=== PATIENT | female | born 1975 | race Caucasian/White ===

== ENCOUNTER 2020-01-26 12:53 | Outpatient (REF) | payer OTHER, SELFPAY ==
--- NOTE | 2020-01-26 13:01 | XR_ITS ---
EXAMINATION: XR HIP, LEFT CLINICAL INFORMATION: Left hip pain. COMPARISON: None. TECHNIQUE: 2 views of the left hip. FINDINGS: Left hip joint space is maintained. No acute fracture or dislocation is seen. Visualized left hemipelvis is intact. No abnormal soft tissue calcification. IMPRESSION: No evidence of acute osseous abnormality.
== END 2020-01-26 12:54 | disposition home or self-care (01) ==
LOC: HO.XRAY 12:53
PROVIDERS: PCP Internal Medicine; Visit Provider Internal Medicine
DX: M25.552 Pain in left hip (principal)
CPT/HCPCS: 73502

== ENCOUNTER 2020-02-02 14:36 | Outpatient (REF) | payer OTHER, SELFPAY ==
--- NOTE | 2020-02-02 14:43 | MM_ITS ---
EXAMINATION: MM SCREENING DIGITAL BREAST TOMOSYNTHESIS, BILATERAL CLINICAL INFORMATION: Screening. Asymptomatic. The lifetime risk of breast cancer based on the Tyrer-Cuzick Model is 9%. COMPARISON: Mammography: 01/28/2019, 12/18/2017, 09/10/2016, 08/12/2015 TECHNIQUE: Digital breast tomosynthesis is performed in both the craniocaudal and mediolateral oblique views along with computer-aided detection (CAD). Synthesized 2D images are generated from the tomosynthesis. Additional exaggerated right CC view is provided. FINDINGS: There are scattered areas of fibroglandular density (ACR BI-RADS breast composition Category b). There are no significant masses, abnormal calcifications, or other abnormalities. There is stable oval nodule mid 8:00 right breast and stable lobulated nodule posterior central 3:00 left breast similar to prior exams. IMPRESSION: No significant changes from prior studies. ASSESSMENT: BI-RADS 2: Benign RECOMMENDATION: Routine annual mammography screening. This patient's information was entered into a reminder system with a target due date for their next mammogram.
== END 2020-02-02 14:37 | disposition home or self-care (01) ==
LOC: HO.MAMMO 14:36
PROVIDERS: PCP Internal Medicine; Visit Provider Internal Medicine
DX: Z12.31 Encounter for screening mammogram for malignant neoplasm of breast (principal)
CPT/HCPCS: 77063; 77067

== ENCOUNTER 2020-02-11 09:37 | Outpatient (REF) | payer OTHER, SELFPAY ==
[2020-02-11 11:26] LABS: Basophils Absolute Auto 0.1 X10*3/uL (0.0-0.2); Basophils Percent Auto 0.5 % (0-2); Eosinophils Absolute Auto 0.4 X10*3/uL (0.0-0.4); Eosinophils Percent Auto 3.1 % (0-4); Hematocrit 42.3 % (37-47); Imm Gran Abs Auto 0.04 X10*3/uL (0.00-0.03); Imm Gran Pct Auto 0.3 % (0.0-0.4); Lymphocytes Absolute Auto 5.5 X10*3/uL (1.2-4.9); Lymphocytes Percent Auto 43.1 % (20-40); MANUAL DIFF FLAG SCAN; Mean Corpuscular HGB Conc 33.1 g/dl (31.0-35.0); Mean Corpuscular Hemoglobin 30.6 pg (27.0-33.0); Mean Corpuscular Volume 92.6 fL (80-98); Mean Platelet Volume 11.2 fL (9.4-12.3); Monocytes Absolute Auto 0.7 X10*3/uL (0.1-1.2); Monocytes Percent Auto 5.2 % (2-11); Neutrophils Absolute Auto 6.1 X10*3/uL (2.0-8.3); Neutrophils Percent Auto 47.8 % (45-73); Platelet Count 457 X10*3/uL (160-400); Red Blood Count 4.57 X10*6/uL (4.20-5.50); Red Cell Distribution Width 12.6 % (11.0-16.0); SCAN SMEAR FLAG 1; White Blood Count 12.7 X10*3/uL (4.8-10.8)
[2020-02-11 11:39] LABS: Alanine Aminotransferase 10 U/L (0-31); Albumin Level 4.5 g/dL (3.5-5.0); Alkaline Phosphatase 87 U/L (39-117); Anion Gap 14 (12-20); Aspartate Amino Transferase 14 U/L (5-31); Bilirubin Total 0.5 mg/dL (0.0-1.0); Blood Urea Nitrogen 8 mg/dL (9-16); C Reactive Protein 0.43 mg/dL (< or = 0.50); Calcium 9.6 mg/dL (8.4-10.2); Carbon Dioxide 27 mmol/L (22-29); Chloride 105 mmol/L (96-108); Cholesterol 275 mg/dL; Estimated Glomerular Filt Rate > 60; Glucose Fasting 92 mg/dL (60-99); HDL Cholesterol 51 mg/dL; LDL Cholesterol Calculated 198 mg/dl; Potassium 4.2 mmol/l (3.3-5.1); Sodium 142 mmol/L (135-145); Total Protein 6.9 g/dL (6.5-8.0); Triglycerides 130 mg/dL
[2020-02-11 12:14] LABS: SLIDE REVIEW VERIFIED
[2020-02-11 12:21] LABS: Glucose Urine UA NEG (NEG); Leukocyte Esterase Urine NEG (NEG); Nitrite Urine NEG (NEG); Specific Gravity - Urine 1.015 (1.005-1.025); Urine Blood TRACE (NEG); Urine Ketones NEG (NEG); Urine Protein TRACE MG/DL (NEG-TRACE)
[2020-02-11 12:38] LABS: Appearance Urine HAZY; Color Urine YELLOW
[2020-02-11 13:35] LABS: RBC Urine 0-2 /HPF (0); Squamous Epithelial Cell Urine TRACE /LPF; WBC Urine 0 /HPF (0-4)
[2020-02-11 13:36] LABS: Amorphous Sediment Urine 2+ /LPF
== END 2020-02-11 09:38 | disposition home or self-care (01) ==
LOC: HO.HMGCLDS 09:37
PROVIDERS: PCP Internal Medicine; Visit Provider Internal Medicine
DX: R10.11 Right upper quadrant pain (principal); Z00.00 Encounter for general adult medical examination without abnormal findings; M79.642 Pain in left hand; M79.641 Pain in right hand
CPT/HCPCS: 36415; 80053; 80061; 81001; 81003; 82306; 85025; 86140; 87086

== ENCOUNTER 2020-04-20 09:24 | Outpatient (REF) | payer OTHER, SELFPAY ==
[2020-04-20 11:13] LABS: Basophils Percent Auto 0.2 % (0-2); Eosinophils Absolute Auto 0.3 X10*3/uL (0.0-0.4); Eosinophils Percent Auto 2.4 % (0-4); Hematocrit 40.2 % (37-47); Hemoglobin 13.2 g/dl (12.0-16.0); Imm Gran Abs Auto 0.04 X10*3/uL (0.00-0.03); Imm Gran Pct Auto 0.3 % (0.0-0.4); Lymphocytes Percent Auto 48.7 % (20-40); MANUAL DIFF FLAG SCAN; Mean Corpuscular HGB Conc 32.8 g/dl (31.0-35.0); Mean Corpuscular Hemoglobin 30.3 pg (27.0-33.0); Mean Corpuscular Volume 92.4 fL (80-98); Mean Platelet Volume 10.8 fL (9.4-12.3); Monocytes Absolute Auto 0.6 X10*3/uL (0.1-1.2); Monocytes Percent Auto 4.8 % (2-11); Neutrophils Absolute Auto 5.4 X10*3/uL (2.0-8.3); Neutrophils Percent Auto 43.6 % (45-73); Platelet Count 431 X10*3/uL (160-400); Red Blood Count 4.35 X10*6/uL (4.20-5.50); Red Cell Distribution Width 12.5 % (11.0-16.0); SCAN SMEAR FLAG 1; White Blood Count 12.4 X10*3/uL (4.8-10.8)
[2020-04-20 11:39] LABS: SLIDE REVIEW VERIFIED
[2020-04-20 11:40] LABS: Amylase 73 U/L (28-100); C Reactive Protein 0.18 mg/dL (< or = 0.50); Cholesterol 234 mg/dL; HDL Cholesterol 43 mg/dL; LDL Cholesterol Calculated 142 mg/dl; Triglycerides 246 mg/dL
== END 2020-04-20 09:25 | disposition home or self-care (01) ==
LOC: HO.HMGCLDS 09:24
PROVIDERS: PCP Internal Medicine; Visit Provider Internal Medicine
DX: R68.84 Jaw pain (principal); J34.89 Other specified disorders of nose and nasal sinuses; E78.00 Pure hypercholesterolemia, unspecified
CPT/HCPCS: 36415; 80061; 82150; 85025; 85060; 86140

== ENCOUNTER 2020-11-03 09:07 | Outpatient (REF) | payer OTHER, SELFPAY ==
[2020-11-03 11:29] LABS: Basophils Absolute Auto 0.1 X10*3/uL (0.0-0.2); Basophils Percent Auto 0.4 % (0-2); Eosinophils Absolute Auto 0.3 X10*3/uL (0.0-0.4); Eosinophils Percent Auto 2.3 % (0-4); Hematocrit 41.1 % (37-47); Hemoglobin 13.5 g/dl (12.0-16.0); Imm Gran Abs Auto 0.05 X10*3/uL (0.00-0.03); Imm Gran Pct Auto 0.4 % (0.0-0.4); Lymphocytes Absolute Auto 5.6 X10*3/uL (1.2-4.9); Lymphocytes Percent Auto 41.3 % (20-40); MANUAL DIFF FLAG SCAN; Mean Corpuscular HGB Conc 32.8 g/dl (31.0-35.0); Mean Corpuscular Hemoglobin 29.9 pg (27.0-33.0); Mean Corpuscular Volume 90.9 fL (80-98); Mean Platelet Volume 11.1 fL (9.4-12.3); Monocytes Absolute Auto 0.8 X10*3/uL (0.1-1.2); Monocytes Percent Auto 5.8 % (2-11); Neutrophils Absolute Auto 6.7 X10*3/uL (2.0-8.3); Neutrophils Percent Auto 49.8 % (45-73); Platelet Count 466 X10*3/uL (160-400); Red Blood Count 4.52 X10*6/uL (4.20-5.50); Red Cell Distribution Width 12.8 % (11.0-16.0); SCAN SMEAR FLAG 1; White Blood Count 13.5 X10*3/uL (4.8-10.8)
[2020-11-03 12:03] LABS: Alanine Aminotransferase 11 U/L (0-31); Albumin Level 4.4 g/dL (3.5-5.0); Alkaline Phosphatase 85 U/L (39-117); Anion Gap 15 (12-20); Aspartate Amino Transferase 14 U/L (5-31); Bilirubin Total 0.6 mg/dL (0.0-1.0); Blood Urea Nitrogen 7 mg/dL (9-16); Calcium 9.4 mg/dL (8.4-10.2); Carbon Dioxide 22 mmol/L (22-29); Chloride 109 mmol/L (96-108); Cholesterol 243 mg/dL; Estimated Glomerular Filt Rate > 60; Glucose Fasting 99 mg/dL (60-99); HDL Cholesterol 44 mg/dL; LDL Cholesterol Calculated 175 mg/dl; Potassium 4.1 mmol/L (3.3-5.1); Sodium 142 mmol/L (135-145); Total Protein 6.7 g/dL (6.5-8.0); Triglycerides 120 mg/dL
[2020-11-03 12:25] LABS: Vitamin D 25-OH Total 25.7 ng/mL (>30)
[2020-11-03 13:17] LABS: SLIDE REVIEW VERIFIED
== END 2020-11-03 09:08 | disposition home or self-care (01) ==
LOC: HO.HMGCLDS 09:07
PROVIDERS: PCP Internal Medicine Medical Oncology; Visit Provider Internal Medicine Medical Oncology
DX: E66.3 Overweight (principal)
CPT/HCPCS: 36415; 80053; 80061; 82306; 85025

== ENCOUNTER → 2020-12-14 13:05 | Outpatient (BNVA) | payer OTHER, SELFPAY | PROVIDERS: PCP Internal Medicine Medical Oncology; Visit Provider Advanced Practice Midwife ==

== ENCOUNTER → 2021-03-28 08:45 | Outpatient (BNVA) | payer OTHER, SELFPAY | PROVIDERS: PCP Internal Medicine Medical Oncology; Visit Provider Advanced Practice Midwife ==

== ENCOUNTER → 2021-04-19 08:54 | Outpatient (BNVA) | payer OTHER, SELFPAY | PROVIDERS: PCP Internal Medicine Medical Oncology; Visit Provider Obstetrics & Gynecology | DX: Z30.46 Encounter for surveillance of implantable subdermal contraceptive (principal) | CPT/HCPCS: 11982 ==

== ENCOUNTER 2021-04-24 12:13 | Outpatient (REF) | payer OTHER, SELFPAY ==
[2021-04-24 13:33] LABS: COVID-19 Test Positive (Negative)
== END 2021-04-24 12:14 | disposition home or self-care (01) ==
LOC: HO.LAB 12:13
PROVIDERS: Visit Provider Internal Medicine
DX: Z20.822 Contact with and (suspected) exposure to COVID-19 (principal)
CPT/HCPCS: 36415; 87635; C9803

== ENCOUNTER 2021-05-01 12:53 | Outpatient (REF) | payer OTHER, SELFPAY ==
[2021-05-01 15:17] LABS: Binax Internal Control QC Valid; Binax Now Covid-19 Ag Negative (Negative)
== END 2021-05-01 12:54 | disposition home or self-care (01) ==
LOC: HO.LAB 12:53
PROVIDERS: Visit Provider Internal Medicine
DX: Z20.822 Contact with and (suspected) exposure to COVID-19 (principal)
CPT/HCPCS: 36415; C9803

== ENCOUNTER 2021-05-05 07:32 | Outpatient (REF) | payer OTHER, SELFPAY | END 2021-05-05 07:33 | disposition home or self-care (01) | LOC: HO.HOSX 07:32 | PROVIDERS: Visit Provider Physician Assistant | DX: Z13.89 Encounter for screening for other disorder (principal) ==

== ENCOUNTER 2021-05-31 09:00 | Outpatient (REF) | payer OTHER, SELFPAY ==
--- NOTE | ~2021-05-31 | MM_ITS ---
EXAMINATION: MM SCREENING DIGITAL BREAST TOMOSYNTHESIS, BILATERAL CLINICAL INFORMATION: Screening. Asymptomatic. The lifetime risk of breast cancer based on the Tyrer-Cuzick Model is 5%. COMPARISON: Mammography: 02/02/2020, 01/28/2019, 12/18/2017, 09/10/2016 TECHNIQUE: Digital breast tomosynthesis is performed in both the craniocaudal and mediolateral oblique views along with computer-aided detection (CAD). Synthesized 2D images are generated from the tomosynthesis. FINDINGS: There are scattered areas of fibroglandular density (ACR BI-RADS breast composition Category b). There are no significant masses, abnormal calcifications, or other abnormalities. Parenchymal pattern is similar to prior studies. There is no developing density or architectural abnormality. There is stable nodule again noted mid 8:00 right breast and stable minor parenchymal asymmetry central 3:00 left breast. No significant changes. The axilla and skin contours are unremarkable. MM/MM tomosynthesis screening BI IMPRESSION: No mammographic evidence of malignancy. ASSESSMENT: BI-RADS 2: Benign RECOMMENDATION: Routine annual mammography screening. This patient's information was entered into a reminder system with a target due date for their next mammogram.
== END 2021-05-31 09:01 | disposition home or self-care (01) ==
LOC: HO.MAMMO 09:00
PROVIDERS: PCP Internal Medicine Medical Oncology; Visit Provider Internal Medicine Medical Oncology
DX: Z12.31 Encounter for screening mammogram for malignant neoplasm of breast (principal)
CPT/HCPCS: 77063; 77067

== ENCOUNTER 2021-10-26 09:32 | Outpatient (REF) | payer OTHER, SELFPAY ==
[2021-10-26 10:17] LABS: COVID-19 Test Negative (Negative); IDNOW Serial# 9DB6401D
== END 2021-10-26 09:33 | disposition home or self-care (01) ==
LOC: HO.LAB 09:32
PROVIDERS: Visit Provider Internal Medicine
DX: Z20.822 Contact with and (suspected) exposure to COVID-19 (principal)
CPT/HCPCS: 87635; C9803

== ENCOUNTER 2022-06-07 10:38 | Outpatient (REF) | payer OTHER, SELFPAY ==
[2022-06-07 11:55] LABS: Basophils Absolute Auto 0.1 X10*3/uL (0.0-0.2); Basophils Percent Auto 0.6 % (0-2); Eosinophils Absolute Auto 0.4 X10*3/uL (0.0-0.4); Eosinophils Percent Auto 2.5 % (0-4); Hematocrit 40.1 % (37.0-47.0); Hemoglobin 13.2 g/dl (12.0-16.0); Imm Gran Abs Auto 0.06 X10*3/uL (0.00-0.03); Imm Gran Pct Auto 0.4 % (0.0-0.4); Lymphocytes Percent Auto 43.8 % (20-40); MANUAL DIFF FLAG SCAN; Mean Corpuscular HGB Conc 32.9 g/dl (31.0-35.0); Mean Corpuscular Hemoglobin 30.3 pg (27.0-33.0); Mean Platelet Volume 11.1 fL (9.4-12.3); Monocytes Absolute Auto 0.8 X10*3/uL (0.1-1.2); Monocytes Percent Auto 5.9 % (2-11); Neutrophils Absolute Auto 6.5 x10*3/uL (2.0-8.3); Neutrophils Percent Auto 46.8 % (45-73); Platelet Count 455 X10*3/uL (160-400); Red Blood Count 4.36 X10*6/uL (4.20-5.50); Red Cell Distribution Width 12.7 % (11.0-16.0); SCAN SMEAR FLAG 1
[2022-06-07 12:04] LABS: Lymphocytes Absolute Auto 6.1 X10*3/uL (1.2-4.9)
[2022-06-07 12:14] LABS: SLIDE REVIEW VERIFIED
[2022-06-07 12:34] LABS: Alanine Aminotransferase 11 U/L (0-31); Albumin Level 4.2 g/dL (3.5-5.0); Alkaline Phosphatase 75 U/L (39-117); Anion Gap 15 (12-20); Aspartate Amino Transferase 13 U/L (5-31); Bilirubin Total 0.4 mg/dL (0.0-1.0); Blood Urea Nitrogen 7 mg/dL (9-16); Calcium 9.6 mg/dL (8.4-10.2); Carbon Dioxide 25 mmol/L (22-29); Chloride 109 mmol/L (96-108); Cholesterol 233 mg/dL; Estimated Glomerular Filt Rate > 60; Glucose Fasting 90 mg/dL (60-99); HDL Cholesterol 47 mg/dL; LDL Cholesterol Calculated 169 mg/dl; Potassium 4.8 mmol/L (3.3-5.1); Sodium 144 mmol/L (135-145); Total Protein 6.3 g/dL (6.5-8.0); Triglycerides 86 mg/dL
[2022-06-07 12:52] LABS: Vitamin D 25-OH Total 25.7 ng/mL (>30)
== END 2022-06-07 10:39 | disposition home or self-care (01) ==
LOC: HO.LAB 10:38
PROVIDERS: PCP Internal Medicine Medical Oncology; Visit Provider Internal Medicine Medical Oncology
DX: Z00.00 Encounter for general adult medical examination without abnormal findings (principal); F17.200 Nicotine dependence, unspecified, uncomplicated; I83.93 Asymptomatic varicose veins of bilateral lower extremities; E66.3 Overweight; Z86.59 Personal history of other mental and behavioral disorders
CPT/HCPCS: 36415; 80053; 80061; 82306; 85025

== ENCOUNTER 2022-06-20 13:53 | Outpatient (REF) | payer OTHER, SELFPAY ==
--- NOTE | ~2022-06-20 | MM_ITS ---
EXAMINATION: MM SCREENING DIGITAL BREAST TOMOSYNTHESIS, BILATERAL CLINICAL INFORMATION: Screening. Asymptomatic. The lifetime risk of breast cancer based on the Tyrer-Cuzick Model is 7%. COMPARISON: Mammography: 05/31/2021, 02/02/2020, 04/30/2018 TECHNIQUE: Digital breast tomosynthesis is performed in both the craniocaudal and mediolateral oblique views along with computer-aided detection (CAD). Synthesized 2D images are generated from the tomosynthesis. FINDINGS: There are scattered areas of fibroglandular density (ACR BI-RADS breast composition Category b). No architectural abnormality or developing density or significant change from prior studies. There are no significant masses, abnormal calcifications, or other abnormalities. Again, there is a circumscribed oval nodule mid central 8:00 right breast and stable nodular asymmetry posterior central 3:00 left breast similar to prior exams. The axilla and skin contours are unremarkable. MM/MM tomosynthesis screening BI IMPRESSION: No mammographic evidence of malignancy. ASSESSMENT: BI-RADS 2: Benign RECOMMENDATION: Routine annual mammography screening. This patient's information was entered into a reminder system with a target due date for their next mammogram.
== END 2022-06-20 13:54 | disposition home or self-care (01) ==
LOC: HO.MAMMO 13:53
PROVIDERS: Visit Provider Internal Medicine Medical Oncology
DX: Z12.31 Encounter for screening mammogram for malignant neoplasm of breast (principal)
CPT/HCPCS: 77063; 77067

== ENCOUNTER 2022-06-27 14:16 | Outpatient (REF) | payer OTHER, SELFPAY ==
[2022-06-27 17:28] LABS: CT PCR NOT DETECTED (Not Detect.); NG PCR NOT DETECTED (Not Detect.)
[2022-06-30 02:59] LABS: HPV mRNA E6/E7 rflx Not Detected (Not Detected)
== END 2022-06-27 14:17 | disposition home or self-care (01) ==
LOC: HO.LNP 14:16
PROVIDERS: PCP Internal Medicine Medical Oncology; Visit Provider Advanced Practice Midwife
DX: Z01.419 Encounter for gynecological examination (general) (routine) without abnormal findings (principal); Z11.51 Encounter for screening for human papillomavirus (HPV); Z20.2 Contact with and (suspected) exposure to infections with a predominantly sexual mode of transmission
CPT/HCPCS: 0353U; 87624; 88142

== ENCOUNTER 2022-11-05 08:40 | Outpatient (REF) | payer OTHER, SELFPAY ==
[2022-11-05 12:06] LABS: Basophils Absolute Auto 0.1 X10*3/uL (0.0-0.2); Basophils Percent Auto 0.7 % (0-2); Eosinophils Absolute Auto 0.5 X10*3/uL (0.0-0.4); Hematocrit 42.5 % (37.0-47.0); Imm Gran Abs Auto 0.08 X10*3/uL (0.00-0.03); Imm Gran Pct Auto 0.5 % (0.0-0.4); Lymphocytes Absolute Auto 5.8 X10*3/uL (1.2-4.9); Lymphocytes Percent Auto 35.3 % (20-40); MANUAL DIFF FLAG SCAN; Mean Corpuscular HGB Conc 32.9 g/dl (31.0-35.0); Mean Corpuscular Hemoglobin 30.8 pg (27.0-33.0); Mean Corpuscular Volume 93.6 fL (80.0-98.0); Mean Platelet Volume 11.6 fL (9.4-12.3); Monocytes Absolute Auto 0.9 X10*3/uL (0.1-1.2); Monocytes Percent Auto 5.2 % (2-11); Neutrophils Absolute Auto 9.1 x10*3/uL (2.0-8.3); Neutrophils Percent Auto 55.3 % (45-73); Platelet Count 458 X10*3/uL (160-400); Red Blood Count 4.54 X10*6/uL (4.20-5.50); Red Cell Distribution Width 12.9 % (11.0-16.0); SCAN SMEAR FLAG 1; White Blood Count 16.5 X10*3/uL (4.8-10.8)
[2022-11-05 12:59] LABS: Alanine Aminotransferase 11 U/L (0-31); Albumin Level 4.5 g/dL (3.5-5.0); Alkaline Phosphatase 84 U/L (39-117); Anion Gap 14 (12-20); Aspartate Amino Transferase 15 U/L (5-31); Bilirubin Total 0.4 mg/dL (0.0-1.0); Blood Urea Nitrogen 9 mg/dL (9-16); Calcium 10.2 mg/dL (8.4-10.2); Carbon Dioxide 26 mmol/L (22-29); Chloride 109 mmol/L (96-108); Cholesterol 267 mg/dL; Estimated Glomerular Filt Rate > 60; Glucose Fasting 111 mg/dL (60-99); HDL Cholesterol 43 mg/dL; LDL Cholesterol Calculated 186 mg/dl; Sodium 145 mmol/L (135-145); Total Protein 7.1 g/dL (6.5-8.0); Triglycerides 192 mg/dL
[2022-11-05 13:01] LABS: Vitamin D 25-OH Total 63.3 ng/mL (>30)
[2022-11-05 13:19] LABS: SLIDE REVIEW VERIFIED
== END 2022-11-05 08:41 | disposition home or self-care (01) ==
LOC: HO.HMGCLDS 08:40
PROVIDERS: PCP Internal Medicine Medical Oncology; Visit Provider Internal Medicine Medical Oncology
DX: E66.3 Overweight (principal); G56.03 Carpal tunnel syndrome, bilateral upper limbs; M54.42 Lumbago with sciatica, left side; E55.9 Vitamin D deficiency, unspecified
CPT/HCPCS: 36415; 80053; 80061; 82306; 85025

== ENCOUNTER 2022-12-10 14:40 | Outpatient (REF) | payer OTHER, SELFPAY ==
--- NOTE | ~2022-12-10 | FL_ITS ---
EXAMINATION: FL MODIFIED BARIUM SWALLOW CLINICAL INFORMATION: Dysphagia. COMPARISON: None available. TECHNIQUE: Modified barium swallow was performed with various consistencies of liquid and solid food coated with barium in lateral fluoroscopy. FINDINGS: Following oral administration of thin, solid, semisolid and thick liquid food coated with barium there is normal propagation of bolus from the oral cavity through the pharynx into esophagus without any evidence of obstruction or narrowing. There is mild ventral spondylosis C3-C4 and C5-C6 disc levels. Video documentation was performed. FLUOROSCOPY TIME: 0.5 minutes DOSE AREA PRODUCT: 0.647 uGy-m2 (microgray-meter squared) FL/FL barium swallow modified IMPRESSION: Successful fluoroscopy-guided modified barium swallow was performed.
--- NOTE | 2022-12-11 14:09 | MHC.SL.IMP ---
Date of Plan of Treatment: 12/11/22 Onset of Symptoms/Illness: 11/15/22 Date Treatment Started: 12/11/22 Admitting Diagnosis: Anxiety Primary Speech & Language Diagnosis: R13.19 Other Dysphagia Reason for Today's Visit: 55521 Modified Barium Swallow Study Pre-evaluation Dietary Consistencies: Regular Pre-evaluation Liquid Consistency: Thin Pre-evaluation Medication Administration: Whole with Liquid Medical History: Asthma [facility] Fall Risk Assessment Score: Oral Motor Exam Unremarkable Oral Expression Ability: Intact Is patient able to manage secretions?: Yes Is patient able to produce volitional cough?: Yes Food and Liquid Trials: Oral Impairment: Lip Closure: 0=No labial escape Oral Impairment: Tongue Control During Bolus Hold: 0=Cohesive bolus between tongue to palatal seal Oral Impairment: Bolus Preparation/Mastication: 0=Timely and efficient chewing and mashing Oral Impairment: Bolus Transport/Lingual Motion: 0=Brisk tongue motion Oral Impairment: Oral Residue: 1=Trace residue lining oral structures Oral Impairment:Initiation of Pharyngeal Swallow: 1=Bolus head in valleculae Pharyngeal Impairment: Soft Palate Elevation: 0=No bolus between soft palate (SP)/pharyngeal wall (PW) Pharyngeal Impairment: Laryngeal Elevation: 0=Complete superior movement of thyroid cartilage (see description) Pharyngeal Impairment: Anterior Hyoid Excursion: 0=Complete anterior movement Pharyngeal Impairment: Epiglottic Movement: 0=Complete inversion Pharyngeal Impairment: Laryngeal Vestibular Closure:: 0=Complete: no air/contrast in laryngeal vestibule Pharyngeal Impairment: Pharyngeal Stripping Wave: 0=Present: complete Pharyngeal Impairment: Pharyngeal Contraction: 0=Complete Pharyngeal Impairment: Pharyngoesophageal Segment Openin=Partial distention/partial duration: partial obstruction of flow Pharyngeal Impairment: Tongue Base (TB) Retraction: 1=Trace column of contrast/air between TB and posterior PW Pharyngeal Impairment: Pharyngeal Residue: Pharyngeal Impairment: Esophageal Clearance Upright Position: Did not test Impressions and Recommendations Clinical Observations: MBSImP Results: Lip closure for intraoral bolus containment resulted in no labial escape. Tongue control during bolus hold maintained a cohesive bolus held between tongue to palate seal. Bolus preparation and mastication resulted in timely and efficient chewing and mashing. Bolus transport/lingual motion was with brisk tongue motion. Oral residue was a trace, lining oral structures. Initiation of the pharyngeal swallow occurred when the bolus head was in the valleculae. Soft palate elevation resulted in no bolus between the soft palate and the pharyngeal wall. Laryngeal elevation demonstrated complete superior movement of the thyroid cartilage with complete approximation of the arytenoids to the epiglottic petiole. Anterior hyoid excursion demonstrated complete anterior movement. Epiglottic movement resulted in complete inversion. Laryngeal vestibular closure was complete, as indicated by no air or contrast within the laryngeal vestibule at the height of the swallow. Pharyngeal stripping wave was present and complete. Pharyngeal contraction could not be determined due to logistical reasons not related to physiologic impairment. Pharyngoesophageal segment opening demonstrated partial distension/partial duration, with partial obstruction of bolus flow. Tongue base retraction allowed a trace column of contrast or air between the retracted tongue base and the posterior pharyngeal wall. Pharyngeal residue was not present. There was complete pharyngeal clearance. Esophageal clearance in the upright position was complete, with only a coating of contrast, if any. Summary: Pt deemed to be within functional limits based on the results of today's study. No contrast is present after the swallow. The bolus is observed transferring through the pharynx and into the esophagus with relative ease. The attending radiologist notes the presence of cervical spondylosis. The location of an osteophyte at the level of the upper esophageal sphincter may explain some of her reported symptoms. It is likely however that her anxiety disorder, in the setting of a recent choking episode, also contributes along with this physiological finding. Liquid Intake Recommendation: Thin Liquid Intake Strategies: Small Sips Dietary Recommendations: Regular Medication Administration: Whole with Liquid Please contact the pharmacy regarding appropriate crushable or liquid drug formulations that are available whenever modified delivery is recommended. Compensatory Strategies Recommended: Sitting Upright (90 deg) Small Bites and Sips Alternate Liquids/Solids Rate of Ingestion Change Supervision during eating and or drinking: None Needed Recommended Treatments: Compens. Strategy Educat. Recommendation for Speech Therapy: NA:Typical Evaluation Text Comment: Frequency/Duration: Date Range for Service Requested: Timeline to reassess: PRN Camp Boss Clinician/Clinical Fellow: No Supervisory Statement: N/A Speech Language Pathologist: Zay Blevins M.A., CCC-RAKING MACHINE OPERATOR
== END 2022-12-10 14:41 | disposition home or self-care (01) ==
LOC: HO.XRAY 14:40
PROVIDERS: PCP Internal Medicine Medical Oncology; Visit Provider Internal Medicine Medical Oncology
DX: R13.10 Dysphagia, unspecified (principal)
CPT/HCPCS: 74230; 92611

== ENCOUNTER → 2022-12-10 14:41 | Outpatient (BNV) | payer OTHER, SELFPAY | PROVIDERS: PCP Internal Medicine Medical Oncology; Visit Provider Radiology Diagnostic Radiology | DX: R13.10 Dysphagia, unspecified (principal) | CPT/HCPCS: 74230 ==

== ENCOUNTER 2022-12-12 11:15 | Outpatient (REF) | payer OTHER, SELFPAY ==
[2022-12-12 12:32] LABS: Cholesterol 247 mg/dL (<200); HDL Cholesterol 47 mg/dL (>40); LDL Cholesterol Calculated 177 mg/dL (<100); Triglycerides 117 mg/dL (<150)
== END 2022-12-12 11:16 | disposition home or self-care (01) ==
LOC: HO.LAB 11:15
PROVIDERS: PCP Internal Medicine Medical Oncology; Visit Provider Internal Medicine Medical Oncology
DX: E66.3 Overweight (principal)
CPT/HCPCS: 36415; 80061

== ENCOUNTER 2023-03-25 15:17 | Outpatient (REF) | payer OTHER, SELFPAY ==
--- NOTE | ~2023-03-25 | XR_ITS ---
EXAMINATION: XR FOOT, RIGHT CLINICAL INFORMATION: Pain COMPARISON: None available. TECHNIQUE: AP, lateral, and oblique views of the right foot. FINDINGS: No acute visible fracture or dislocation. Multi joint arthritic changes greatest at the first metatarsophalangeal joint, fifth metatarsal phalangeal joint, along the dorsal aspect of the navicular. Slight enthesopathy at the Achilles tendon insertion site. Joint spaces and alignment are otherwise maintained. Soft tissues are unremarkable. XR/XR foot RT 2V IMPRESSION: 1. No acute visible fracture or dislocation. 2. Multi joint arthritic changes greatest at the first metatarsophalangeal joint, fifth metatarsophalangeal joint, along the dorsal aspect of the navicular.
== END 2023-03-25 15:18 | disposition home or self-care (01) ==
LOC: HO.XRAY 15:17
PROVIDERS: PCP Internal Medicine Medical Oncology; Visit Provider Internal Medicine Medical Oncology
DX: M79.671 Pain in right foot (principal)
CPT/HCPCS: 73620

== ENCOUNTER 2023-06-14 08:44 | Outpatient (REF) | payer OTHER, SELFPAY ==
[2023-06-14 10:22] LABS: Basophils Absolute Auto 0.1 X10*3/uL (0.0-0.2); Basophils Percent Auto 0.4 % (0-2); Eosinophils Absolute Auto 0.4 X10*3/uL (0.0-0.4); Eosinophils Percent Auto 2.8 % (0-4); Hematocrit 40.6 % (37.0-47.0); Hemoglobin 13.5 g/dl (12.0-16.0); Imm Gran Abs Auto 0.06 X10*3/uL (0.00-0.03); Imm Gran Pct Auto 0.4 % (0.0-0.4); Lymphocytes Absolute Auto 5.4 X10*3/uL (1.2-4.9); Lymphocytes Percent Auto 38.1 % (20-40); MANUAL DIFF FLAG SCAN; Mean Corpuscular HGB Conc 33.3 g/dl (31.0-35.0); Mean Corpuscular Hemoglobin 31.2 pg (27.0-33.0); Mean Corpuscular Volume 93.8 fL (80.0-98.0); Mean Platelet Volume 10.7 fL (9.4-12.3); Monocytes Absolute Auto 0.7 X10*3/uL (0.1-1.2); Monocytes Percent Auto 4.8 % (2-11); Neutrophils Absolute Auto 7.6 x10*3/uL (2.0-8.3); Neutrophils Percent Auto 53.5 % (45-73); Platelet Count 457 X10*3/uL (160-400); Red Blood Count 4.33 X10*6/uL (4.20-5.50); Red Cell Distribution Width 13.4 % (11.0-16.0); SCAN SMEAR FLAG 1; White Blood Count 14.3 X10*3/uL (4.8-10.8)
[2023-06-14 10:56] LABS: SLIDE REVIEW VERIFIED
[2023-06-14 11:01] LABS: Alanine Aminotransferase 11 U/L (0-31); Albumin Level 4.4 g/dL (3.5-5.0); Alkaline Phosphatase 87 U/L (39-117); Anion Gap 17 (12-20); Aspartate Amino Transferase 12 U/L (5-31); Bilirubin Total 0.5 mg/dL (0.0-1.0); Blood Urea Nitrogen 9 mg/dL (9-16); Calcium 9.4 mg/dL (8.4-10.2); Carbon Dioxide 25 mmol/L (22-29); Chloride 105 mmol/L (96-108); Cholesterol 254 mg/dL (<200); Estimated Glomerular Filt Rate > 60; Glucose Fasting 105 mg/dL (60-99); HDL Cholesterol 50 mg/dL (>40); LDL Cholesterol Calculated 175 mg/dL (<100); Potassium 3.6 mmol/L (3.3-5.1); Sodium 143 mmol/L (135-145); Total Protein 6.9 g/dL (6.5-8.0); Triglycerides 147 mg/dL (<150)
== END 2023-06-14 08:45 | disposition home or self-care (01) ==
LOC: HO.HMGCLDS 08:44
PROVIDERS: PCP Internal Medicine Medical Oncology; Visit Provider Internal Medicine Medical Oncology
DX: Z00.00 Encounter for general adult medical examination without abnormal findings (principal); K57.92 Diverticulitis of intestine, part unspecified, without perforation or abscess without bleeding; E66.3 Overweight
CPT/HCPCS: 36415; 80053; 80061; 85025

== ENCOUNTER 2023-06-24 13:51 | Outpatient (REF) | payer OTHER, SELFPAY | END 2023-06-24 13:52 | disposition home or self-care (01) | LOC: HO.MAMMO 13:51 | PROVIDERS: PCP Internal Medicine Medical Oncology; Visit Provider Internal Medicine Medical Oncology | DX: Z12.31 Encounter for screening mammogram for malignant neoplasm of breast (principal) | CPT/HCPCS: 77063; 77067 ==

== ENCOUNTER → 2023-06-24 14:15 | Outpatient (BNV) | payer OTHER, SELFPAY | PROVIDERS: PCP Internal Medicine Medical Oncology; Visit Provider Radiology Diagnostic Radiology | DX: Z12.31 Encounter for screening mammogram for malignant neoplasm of breast (principal) | CPT/HCPCS: 77063; 77067 ==

== ENCOUNTER 2023-07-02 08:26 | Outpatient (AMB) | payer OTHER, SELFPAY ==
--- NOTE | 2023-07-02 08:30 | MHC.OFFVIS ---
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: Strategy Consultant Present (Mena) Allergies acetaminophen [From VICODIN] Allergy (Unknown, Verified 07/02/23 08:31) UNKNOWN aspirin [ASA] Allergy (Unknown, Verified 07/02/23 08:31) HIVES, NAUSEA & VOMITING hydrocodone [HYDROCODONE] Allergy (Unknown, Verified 07/02/23 08:31) HIVES oxycodone [OXYCODONE] Allergy (Unknown, Verified 07/02/23 08:31) NAUSEA & VOMITING, HIVES, rash tramadol [TRAMADOL] Allergy (Unknown, Verified 07/02/23 08:31) UNKNOWN, rash Narcotics Allergy (Unknown, Uncoded 06/27/22 14:22) Unknown Hydrocodone-Ibuprofen Adverse Reaction (Unknown, Uncoded 02/25/18 00:00) rash HPI HPI Comments History of Present Illness Details She is a premenopausal woman presenting for annual examination. Doing well with no concerns. She tries to eat healthy and stays active with exercise when not having back issues. LMP age 30. Currently is sexually active. She denies vaginal itching and irritation. STI screening offered; she accepts. Last pap smear 2022, negative. Mammogram: Report pending reading. [facility] Medical History Arthritis Family history of cancer Asthma Depression with anxiety Surgical History Status post endovenous radiofrequency ablation (RFA) of saphenous vein History of appendectomy History of carpal tunnel surgery Family History Mother Uterine cancer Leukemia COPD (chronic obstructive pulmonary disease) Ovarian cancer Maternal Grandmother Ovarian cancer Maternal Aunt History of breast cancer Lung cancer Paternal Uncle Colon cancer Prostate CA Maternal Uncle Colon cancer Prostate CA Sister Melanoma Maternal Aunt History of breast cancer Father Throat cancer Paternal Aunt Alzheimer disease Social History Alcohol intake: never Patient Tobacco Use Status: Current everyday Tobacco user Cigarettes Per Day: 3 Advance Directives Date on File: 02/02/20 Sexual orientation: Straight/Heterosexual Gender identity: Female Female Reproductive History Menstrual Age of Menarche: 10 Menopause type: natural Total pregnancies: 5 Full term: 3 Number of Living Children: 3 Ab induced: 2 Date of last pap smear: 06/27/22 (neg pap and hpv) Date of Mammogram: 06/24/23 Review of Systems Const All systems reviewed & are unremarkable except as noted in HPI and below Reports as per HPI Eyes Reports no additional complaints ENT Reports no additional complaints Card Reports no additional complaints Resp Reports no additional complaints GI Reports as per HPI and Reports no additional complaints Reports as per HPI Musc Reports no additional complaints Skin/Breast Reports as per HPI Neuro Reports no additional complaints Psych Reports no additional complaints Endo Reports no additional complaints Atul/Lymph Reports no additional complaints Aller/Immun Reports no additional complaints Physical Exam Vital Signs: Last Vital Signs BP 100/60 07/02/23 08:31 BMI result Body Mass Index 27.3 Const General: cooperative, healthy appearing, no acute distress, well developed and alert Orientation/consciousness: patient oriented x3 HEENT Head: Yes normal to inspection Eyes General: appearance normal, both eyes and all related structures Neck Neck: Yes normal visual inspection Thyroid: Thyroid normal Chest Chest palpation & inspection: normal inspection of the chest and other (no puckering, dimpling, peau de orange, retraction, discharge, masses) Breast/axilla inspection: normal inspection of the breasts Breast/axilla palpation: normal palpation of the breasts Resp Effort & Inspection: normal respiratory effort GI Inspection: Yes normal to inspection Palpation (GI): Soft to palpation Rectal Exam - Female: deferred General: Yes bladder normal to palpation External Female Exam: normal external appearance and normal appearance of the urethra Speculum Exam - Vagina: normal appearance of the vagina, normal palpation and normal vaginal discharge Speculum Exam - Cervix: normal appearance of the cervix and normal palpation Bimanual exam- vagina & uterus: normal bimanual exam, normal palpation, uterine size normal, bladder normal to palpation, normal palpation and non-tender Bimanual Exam- Adnexa, other: no masses Skin General skin exam: no rashes or lesions noted Rashes: no rashes Neuro General: patient oriented x3 Cognition (Neuro): normal cognition Extrem General: Yes normal to inspection Psych Attitude: cooperative Thought process: Normal thought process present Assessment & Plan Assessment & Plan (1) Encounter for well woman exam with routine gynecological exam: Code(s): Z01.419 - Encounter for gynecological examination (general) (routine) without abnormal findings Plan Discussed: Current recommendations for pap smears per ASCCP guidelines. Breast awareness and periodic breast exams. Maintain a healthy lifestyle including a well balanced diet and routine exercise. Report any vaginal bleeding. Mammogram yearly. Patient verbalizes understanding and agrees to the plan of care. She was given opportunity to ask questions and all questions were answered to the best of my ability. 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 This note is constructed using voice recognition software. While every effort has been made to ensure accuracy, beverage sales consultant errors may have been included. Orders: Orders Hepatitis C Antibody Reflex Today Z20.2 - Contact with and (suspected) exposure to infections with a predominantly sexual mode of transmission Hepatitis B Core Antibody Today Z20.2 - Contact with and (suspected) exposure to infections with a predominantly sexual mode of transmission HIV Ab/Ag Today Z20.2 - Contact with and (suspected) exposure to infections with a predominantly sexual mode of transmission Syphilis Screen Today Z20.2 - Contact with and (suspected) exposure to infections with a predominantly sexual mode of transmission Coding Level of Care Code Est Pt Prev Care 40-64y(08355) Diagnoses Encounter for well woman exam with routine gynecological exam Z01.419
[2023-07-02 08:31] VITALS: BP 100/60; BMI 27.3
== END 2023-07-02 09:42 | disposition home or self-care (01) ==
LOC: HO.HWS 08:26
PROVIDERS: PCP Internal Medicine Medical Oncology; Visit Provider Advanced Practice Midwife
DX: Z01.419 Encounter for gynecological examination (general) (routine) without abnormal findings (principal)
CPT/HCPCS: 99396

== ENCOUNTER 2023-07-02 08:26 | Outpatient (REF) | payer OTHER, SELFPAY ==
[2023-07-02 12:06] LABS: CT PCR NOT DETECTED (Not Detect.); NG PCR NOT DETECTED (Not Detect.)
== END 2023-07-02 08:27 | disposition home or self-care (01) ==
LOC: HO.LNP 08:26
PROVIDERS: PCP Internal Medicine Medical Oncology; Visit Provider Advanced Practice Midwife
DX: Z01.419 Encounter for gynecological examination (general) (routine) without abnormal findings (principal); Z20.2 Contact with and (suspected) exposure to infections with a predominantly sexual mode of transmission
CPT/HCPCS: 0353U; 99396

== ENCOUNTER 2023-08-01 13:05 | Outpatient (REF) | payer OTHER, SELFPAY ==
[2023-08-04 04:19] LABS: TS Negative Control Passed; TS Panel A 0; TS Panel B 2; TS Positive Control Passed; TSpotTB Negative (Negative)
== END 2023-08-01 13:06 | disposition home or self-care (01) ==
LOC: HO.LAB 13:05
PROVIDERS: Visit Provider Internal Medicine Medical Oncology
DX: Z11.1 Encounter for screening for respiratory tuberculosis (principal)
CPT/HCPCS: 36415; 86481

== ENCOUNTER 2024-01-02 09:32 | Emergency (ER) | payer OTHER, SELFPAY ==
--- NOTE | ~2024-01-02 | CT_ITS ---
EXAMINATION: CT LUMBAR SPINE WITHOUT CONTRAST CLINICAL INFORMATION: Pain radiating down left leg x2 weeks. COMPARISON: None available. TECHNIQUE: Noncontrast computed tomography of the lumbar spine was performed. This CT examination was performed using dose optimization techniques as appropriate, variously including the following: *Automated exposure control *Adjustment of mA and/or kV according to patient size (this includes techniques or standardized protocols for targeted exams where dose is matched to indication/reason for exam; i.e. extremities or head) *Use of iterative reconstruction technique DLP; 426 mGy-cm FINDINGS: Lumbar spinal alignment is anatomic in the sagittal projection. Vertebral body heights are preserved. There is mild narrowing of the L5-S1 intervertebral disc space. Remaining lumbar intervertebral disc spaces demonstrate preserved stature. Paraspinal soft tissue is normal in appearance. Evaluation of the individual disc space levels is as follows: T12-L1: There is no disc herniation. No spinal canal or foraminal stenosis. L1-2: There is no significant disc herniation. There is no spinal canal or foraminal stenosis. L2-3: No significant disc herniation. There is no spinal canal or foraminal stenosis. L3-4: There is a shallow circumferential disc bulge. No spinal canal or foraminal stenosis. L4-5: There is a shallow circumferential disc bulge which is slightly eccentric towards the right side. There is flattening of the ventral thecal sac. No spinal canal stenosis. No significant foraminal narrowing. L5-S1: There is a moderate-sized posterior disc herniation which effaces the ventral thecal sac. There is mild facet arthropathy. There is no significant spinal canal narrowing. There is mild right foraminal stenosis. There is moderate left foraminal stenosis. Disc material may contact the exiting left L5 nerve root. The visualized liver, spleen, pancreas, adrenal glands, and kidneys are normal in appearance. There is no retroperitoneal lymphadenopathy. The visualized aorta is normal in caliber. There is mild atherosclerotic disease. Visualized small bowel and colon are normal in caliber. The visualized uterus and adnexal structures are unremarkable. The urinary bladder is normal in appearance. CT/CT lumbar spine wo IV con IMPRESSION: There is mild degenerative disc disease at L5-S1. There is a moderate size posterior disc herniation at this level which effaces the ventral thecal sac. Disc material may contact the exiting left L5 nerve root. There is moderate left foraminal stenosis. There is mild right foraminal stenosis. Electronically signed by: Lester Jolly DO 01/02/2024 02:50 PM EDT RP
--- NOTE | ~2024-01-02 | US_ITS ---
EXAMINATION: US TRIPLEX LOWER EXTREMITY, LEFT CLINICAL INFORMATION: Pain history varicose veins COMPARISON: None available. TECHNIQUE: Color-flow triplex imaging with spectral analysis and compression Doppler were performed on the left lower extremity. FINDINGS: Respiratory variation, normal compression and augmented flow are noted throughout the left lower extremity. The visualized common femoral vein, superficial femoral vein, profunda femoral vein, popliteal vein and midcalf peroneal and posterior tibial venous segments show no evidence of deep venous thrombosis. Contralateral common femoral vein is patent. There is no Fernandez's cyst. US/US venous duplex LE LT IMPRESSION: No evidence of deep venous thrombosis involving the left lower extremity. Electronically signed by: Messi Parry MD 01/02/2024 12:23 PM EDT
[2024-01-02 09:56] VITALS: BP 176/81; PULSE 100; RESP 20; TEMP 36.4; O2SAT 99; BMI 27.0
--- NOTE | 2024-01-02 11:01 | ED_ITS ---
HPI - General Adult General Chief complaint: Extremity Injury, Lower Stated complaint: Sent by Dr Derrell Thao leg? Time Seen by Provider: 01/02/24 11:00 Source: patient Mode of arrival: ambulatory Limitations: no limitations History of Present Illness ED Provider: greta GALO narrative: Patient is a 48-year-old female with history of asthma, arthritis, depression and anxiety, reported history of SI joint pain, DVT and surgical repair of varicose veins to left leg presenting to the ED with complaint of severe pain to posterior left upper leg for 2 weeks. Denies any fall or other trauma. Does report walking from [facility] several miles to the [facility] prior to onset of symptoms. Denies weakness, numbness, tingling. Has tried Tylenol, ibuprofen, topical cream without relief. Saw PCP this morning, Dr. Bennett, who referred patient to the ED. She denies back pain, saddle anestesia, or bowel/bladder incontinence. Denies fevers. MD complaint: left leg pain Onset (ago): week(s) Location: left and lower extremity Radiation: non-radiation Severity: severe Quality: burning Pain Consistency: constant Relieving factors: none Associated symptoms: denies other symptoms Treatments prior to arrival: NSAID and other Related Data Home Medications ?Medication ?Instructions ?Recorded ?Confirmed albuterol sulfate 90 mcg/actuation 0 mcg inhalation 03/28/21 aerosol inhaler (ProAir HFA) ascorbic acid (vitamin C) 500 mg mg PO 07/02/23 capsule calcium carbonate (Calcium 600) 600 mg PO DAILY 07/02/23 cetirizine 5 mg-pseudoephedrine ER 1 tab PO BID 07/02/23 120 mg tablet,extended release,12hr (Zyrtec-D) cholecalciferol (vitamin D3) 50 50 mcg PO DAILY 07/02/23 mcg (2,000 unit) capsule Allergies Allergy/AdvReac Type Severity Reaction Status Date / Time acetaminophen [From VICODIN] Allergy Unknown UNKNOWN Verified 01/02/24 09:58 aspirin [ASA] Allergy Unknown HIVES, Verified 01/02/24 09:58 NAUSEA & VOMITING hydrocodone [HYDROCODONE] Allergy Unknown HIVES Verified 01/02/24 09:58 oxycodone [OXYCODONE] Allergy Unknown NAUSEA & Verified 01/02/24 09:58 VOMITING, HIVES, rash tramadol [TRAMADOL] Allergy Unknown UNKNOWN, Verified 01/02/24 09:58 rash Narcotics Allergy Unknown Unknown Uncoded 06/27/22 14:22 Hydrocodone-Ibuprofen AdvReac Unknown rash Uncoded 02/25/18 00:00 Review of Systems Review of Systems: As per HPI. Yes all other systems are reviewed and are negative Constitutional: Constitutional: Reports as per HPI [facility] Past Medical History Medical History Arthritis Family history of cancer Asthma Depression with anxiety Surgical History Status post endovenous radiofrequency ablation (RFA) of saphenous vein History of appendectomy History of carpal tunnel surgery Family History Family History Mother Uterine cancer Leukemia COPD (chronic obstructive pulmonary disease) Ovarian cancer Maternal Grandmother Ovarian cancer Maternal Aunt History of breast cancer Lung cancer Paternal Uncle Colon cancer Prostate CA Maternal Uncle Colon cancer Prostate CA Sister Melanoma Maternal Aunt History of breast cancer Father Throat cancer Paternal Aunt Alzheimer disease Social History Social History Alcohol intake: never Patient Tobacco Use Status: Current everyday Tobacco user Cigarettes Per Day: 3 Advance Directives: No Advance Directives Information Provided: Yes Advance Directives Date on File: 02/02/20 Do you have a plan to hurt others: No Plan Sexual orientation: Straight/Heterosexual Gender identity: Female Physical Exam ED Vital Signs: Vital Signs - 24 hr 01/02/24 09:56 01/02/24 12:55 01/02/24 12:56 Temperature 97.5 F 97.5 F 96.9 F Pulse Rate 100 100 82 Respiratory Rate 20 20 16 Blood Pressure 176/81 H 176/81 H 146/91 H Pulse Oximetry 99 100 Oxygen Delivery Method Room Air Room Air BMI result Body Mass Index 27.0 Vital signs have been reviewed and appear to be correct. Blood pressure elevated. Heart rate normal. Respiratory rate normal. Temperature normal. Oxygen saturation normal. Const General: cooperative, healthy appearing and no acute distress Orientation/consciousness: oriented to person, oriented to place, oriented to time and patient oriented x3 Limitations: no limitations HENMT Head: Yes normocephalic and Yes atraumatic Ears: external ears normal General nose exam: Normal external nose present Face and sinus: Yes face symmetric Mouth: oropharynx normal and moist mucous membranes Throat: Yes uvula midline Eyes Pupils: Equal, round and reactive pupils present Neck Neck: Yes normal visual inspection, Yes no meningeal signs and Yes supple Resp Effort & Inspection: normal respiratory effort and able to speak in complete sentences Auscultation: clear to auscultation bilaterally Cardio Rate: regular rate Rhythm: regular rhythm Heart sounds: S1 normal heart sound present and S2 normal heart sound present GI Palpation (GI): Soft to palpation and nontender Auscultation: normoactive bowel sounds General: Yes no CVA tenderness Back/Spine/Pelvis Back: no CVA tenderness Thoracic/Lumbar Spine: thoracic and lumbar spine normal to inspection, thoraco- lumbar ROM normal, straight leg raise negative bilaterally, No pain with thoraco-lumbar ROM, No thoracic spinal tenderness and No lumbar spinal tenderness Skin General skin exam: elasticity normal and turgor normal Neuro General: oriented to person, oriented to place, oriented to time, patient oriented x3, tone normal, moves all extremities, Normal light touch and pain sensation, no meningeal signs, no focal motor deficits, CN's II-XI intact bilaterally and deep tendon reflexes 2+ bilaterally Cranial nerves: Yes Equal, round and reactive pupils present Cognition (Neuro): normal cognition Motor exam (neuro): 5/5 motor strength present throughout, Normal motor muscle tone present throughout and Motor abnormalities not present Extrem General: Yes full ROM, Yes no pedal edema and Yes no calf tenderness Psych Mental Status: mental status grossly normal Affect: normal affect Thought process: Normal thought process present Medications Administered Discontinued Medications Generic Name Dose Route Start Last Admin Trade Name Bharatq PRN Reason Stop Dose Admin Ketorolac Tromethamine 30 mg 01/02/24 11:39 01/02/24 12:11 Ketorolac Tromethamine 30 Mg/Ml Vial IM 01/02/24 11:40 30 mg ONCE ONE Administration Prednisone 50 mg 01/02/24 11:39 01/02/24 12:10 Prednisone 10 Mg Tablet PO 01/02/24 11:40 50 mg ONCE ONE Administration Medical Decision Making Medical Decision Making MDM Narrative: Patient is a 48-year-old female with history of asthma, arthritis, depression and anxiety, reported history of SI joint pain, DVT and surgical repair of varicose veins to left leg presenting to the ED with complaint of severe pain to posterior left upper leg for 2 weeks. On exam patient is awake, A+Ox3, BP elevated, VS otherwise WNL, afebrile, normal neurological exam without focal deficits, physical exam findings as above. Given reported symptoms and physical exam findings, initial differential includes lumbar radiculopathy, degenerative disc disease, disc herniation, spinal stenosis, spondylosis. Less likely vertebral fracture. Do not suspect malignancy/mass, SEA, cauda equina/cord compression. Ultrasound notable for no evidence of DVT. My interpretation is in agreement with the radiologist's interpretation. Patient updated on results of ultrasound, and advised that results of CT scan were not yet read by radiologist. Patient stating that she does not want to continue to wait in the emergency department for results. She left prior to signing AMA form. * The patient has decided to leave against medical advice because she does not want to wait any longer. * They have normal mental status and adequate capacity to make medical decisions. * The risks have been explained to the patient, including increased pain, worsening illness, chronic pain, permanent disability and .. * The patient was able to understand and state the risks and benefits of leaving against medical advice. * They had the opportunity to ask questions about their medical condition. * The patient was treated to the extent that they would allow and knows that they may return for care at any time. * Patient states she will follow up with her PCP, Dr. Bennett Differential Diagnosis Differential Diagnoses: The differential diagnosis associated with the presentation includes As per MDM Independent Interpretation I performed an independent interpretation of an: Ultrasound Interpretation: No evidence of DVT left leg. Radiology Impression Discussion of test interpretation with radiology: I have reviewed the radiologist's reading. Radiologist Impression: US/US venous duplex LE LT IMPRESSION: No evidence of deep venous thrombosis involving the left lower extremity. External Record Review External record reviewed: Inpatient record, Office record and Outpatient record Discharge Plan Discharge Clinical Impression: Left leg pain Patient Disposition: Left Against Medical Advice Additional Instructions: You chose to leave the emergency department prior to full evaluation against medical advice. You can return to this or any emergency department at any time should you change your mind. We recommend that you follow up with your primary care provider. Prescriptions: No Action albuterol sulfate [ProAir HFA] 90 mcg/actuation HFA aerosol inhaler 0 mcg inhalation cholecalciferol (vitamin D3) 50 mcg (2,000 unit) capsule 50 mcg PO DAILY ascorbic acid (vitamin C) 500 mg capsule PO calcium carbonate [Calcium 600] 600 mg calcium (1,500 mg) tablet 600 mg PO DAILY cetirizine-pseudoephedrine [Zyrtec-D] 5-120 mg tablet extended release 12 hr 1 tab PO BID Print Language: French
[2024-01-02] MEDS: predniSONE 10 MG TABLET 50 MG PO (12:10)
[2024-01-02] MEDS: Ketorolac Tromethamine 30 MG/ML VIAL IM (12:11)
[2024-01-02 12:55] VITALS: BP 176/81; PULSE 100; RESP 20; TEMP 36.4
[2024-01-02 12:56] VITALS: BP 146/91; PULSE 82; RESP 16; TEMP 36.1; O2SAT 100
--- NOTE | 2024-01-02 14:47 | PC.NURSE ---
pt declined to wait for CT scan result, provider at bedside discussing risks of leaving AMA. pt aware and declined to wait for paperwork.
== END 2024-01-02 14:56 | disposition left against medical advice (07) ==
PROVIDERS: Emergency Provider Emergency Medicine; PCP Internal Medicine Medical Oncology
DX: M79.605 Pain in left leg (principal); M54.50 Low back pain, unspecified; R60.0 Localized edema; Z79.899 Other long term (current) drug therapy
CPT/HCPCS: 72131; 93971; 96372; 99283; 99284; J1885

== ENCOUNTER 2024-01-30 13:34 | Outpatient (REF) | payer OTHER, SELFPAY | END 2024-01-30 13:35 | disposition home or self-care (01) | LOC: HO.HOSX 13:34 | PROVIDERS: PCP Internal Medicine Medical Oncology; Visit Provider Physician Assistant | DX: M25.552 Pain in left hip (principal); M54.16 Radiculopathy, lumbar region | CPT/HCPCS: 99202 ==

== ENCOUNTER 2024-01-30 13:34 | Outpatient (AMB) | payer OTHER, SELFPAY ==
--- NOTE | 2024-01-30 13:43 | HO.SPINEOV ---
Vital Signs 01/30/24 13:51 Height 5 ft Weight 140 lb BMI 27.3 Intake Visit Reasons: lumbar radiculopathy/lumbar disc herniation Intake Note: Ms. Thompson is here today c/o low back pain that radiates to both legs. [employer] Required: No Allergies acetaminophen [From VICODIN] Allergy (Unknown, Verified 01/30/24 13:52) UNKNOWN aspirin [ASA] Allergy (Unknown, Verified 01/30/24 13:52) HIVES, NAUSEA & VOMITING hydrocodone [HYDROCODONE] Allergy (Unknown, Verified 01/30/24 13:52) HIVES oxycodone [OXYCODONE] Allergy (Unknown, Verified 01/30/24 13:52) NAUSEA & VOMITING, HIVES, rash tramadol [TRAMADOL] Allergy (Unknown, Verified 01/30/24 13:52) UNKNOWN, rash Narcotics Allergy (Unknown, Uncoded 06/27/22 14:22) Unknown Hydrocodone-Ibuprofen Adverse Reaction (Unknown, Uncoded 02/25/18 00:00) rash Physical Exam Vital Signs: BMI result Body Mass Index 27.3 Assessment & Plan Assessment & Plan (1) Left hip pain: Code(s): M25.552 - Pain in left hip Category: Medical (2) Lumbar radiculopathy: Code(s): M54.16 - Radiculopathy, lumbar region Category: Medical Plan Dear Dr Bennett, Thank you for referring Mrs Thompson to our office today. She is a very nice 48-year-old female presents to the office today for evaluation of a left leg radiculopathy that started maybe more than a year ago. It got significantly intense sometime around June of this year. There is a component of back pain but primarily it radiates down from the left side of her low back into her posterolateral thigh and into her calf. The pain is intense and severe. It is unrelenting over the last 6 months or more 2 where she is barely able to go for even a brief period of time walking, sitting or lying down without significant discomfort. She did try physical therapy for few months but unfortunately that did not help, may have actually made things worse. She has been on and off prednisone since earlier in the year. She has also been taking Advil and Tylenol. She did go to the emergency room a number of weeks ago but had a bad experience there. They did do a CT scan of her low back to evaluate things. There was some degenerative changes found. She is here today to see us for evaluation. She has not yet done any chiropractic, cortisone injections or acupuncture. PMH: She is a lifelong smoker, she has history of depression, anxiety, carpal tunnel release, tendon repair, varicose vein surgery, appendectomy. Denies any heart attacks, strokes, liver disease, kidney disease, bleeding disorders, cancer, major abdominal surgery. Social hx: She smokes about half a pack a day, occasional marijuana, no alcohol Medications: Vitamin-D, vitamin-C, Zyrtec, Tylenol, Advil Allergies: All narcotics give her severe side effects such as nausea vomiting, sweats, dizziness, palpitations etc.. Physical exam: She is very uncomfortable, sits on her right buttock, unable to stand or sit for any length of time, constantly changing positions. She has a lot of pain with any manipulation of her leg, motor testing is difficult secondary to the amount of pain she is in, there may be some slight weakness of her left plantar/dorsiflexion. positive straight leg raise at maybe 30 degrees, very difficult to test. She also had some pain with internal and external rotation of her hip. Reflexes diminished at the left Achilles, left patella normal. Imaging review: She is a lumbar CT which shows some mild disc degeneration at L5-S1, within the limitations of CT, there is no way to evaluate the nervous structures. Impression: 48 year old female presents to the office today for evaluation of a year plus or more left leg pain with intermittent occasional back pain. I suspect it is an S1 or L5 radiculopathy. She had a CT scan done but unfortunately this is very limited in what we can see in terms of actual nerve compression. She has been through conservative treatment as outlined above so I think it is appropriate to order a lumbar MRI. I will try to obtain an urgently sent she has been in so much pain and has been barely able to walk, sleep or sit. I will also order a hip x-ray because of the history of steroid use and she did have some pain on internal and external rotation. I would like to rule out that she does not have avascular necrosis which can also cause intense pain down the leg. Thank you for allowing us to care for your patient. The total time spent with this visit with this patient was 45 minutes reviewing history, physical exam, lumbar imaging review, and implementation of treatment plan or further diagnostic testing Sushant Gonzalez MD,PhD [facility] Orders: Orders MR lumbar spine wo con Today M54.16 - Radiculopathy, lumbar region XR hip LT min 2V Today M25.552 - Pain in left hip Coding Level of Care Code New Pt Level 4 (98996) Diagnoses Left hip pain M25.552 Lumbar radiculopathy M54.16
[2024-01-30 13:51] VITALS: BMI 27.3
== END 2024-01-30 14:44 | disposition home or self-care (01) ==
PROVIDERS: PCP Internal Medicine Medical Oncology; Referring Provider Internal Medicine Medical Oncology; Visit Provider Physician Assistant
DX: M25.552 Pain in left hip (principal); M54.16 Radiculopathy, lumbar region
CPT/HCPCS: 99204

== ENCOUNTER 2024-02-11 07:18 | Outpatient (REF) | payer OTHER, SELFPAY ==
--- NOTE | ~2024-02-11 | MR_ITS ---
EXAMINATION: MR LUMBAR SPINE WITHOUT CONTRAST CLINICAL INFORMATION: Radiculopathy, lumbar region COMPARISON: None available. TECHNIQUE: MRI of the lumbar spine was obtained using routine sequences without contrast. FINDINGS: Normal alignment. No acute bone marrow abnormality. The vertebral body heights are preserved. Multilevel disc desiccation without significant disc height loss. The visualized spinal cord is normal in caliber. No abnormal cord signal. The conus medullaris terminates at L1. T12-L1: No significant spinal canal or neural foraminal narrowing. Accession: No significant spinal canal or neural foraminal narrowing. L2-3: No significant spinal canal or neural foraminal narrowing. L3-4: No significant spinal canal or neural foraminal narrowing. L4-5: Shallow disc bulge. Minimal bilateral neural foraminal narrowing with the disc abutting the exiting L4 nerve roots bilaterally. No significant spinal canal stenosis. L5-S1: Central disc protrusion with superimposed annular fissure. Bilateral facet arthrosis. Mild spinal canal stenosis. Moderate to severe right and mild left neural foraminal narrowing with mass effect on the exiting L5 nerve roots bilaterally. The paravertebral soft tissues are unremarkable. MR/MR lumbar spine wo con IMPRESSION: 1. At L5-S1, a central disc protrusion with superimposed annular fissure and facet arthrosis results in mild spinal canal stenosis and moderate to severe right and mild left neural foraminal narrowing with mass effect on the exiting L5 nerve roots. 2. At L4-L5, a shallow disc bulge results in minimal bilateral neural foraminal narrowing with the disc abutting the exiting L4 nerve roots bilaterally. Electronically signed by: Stephanie Dodson MD 02/11/2024 04:34 PM EDT
== END 2024-02-11 07:19 | disposition home or self-care (01) ==
LOC: HO.MRI 07:18
PROVIDERS: PCP Internal Medicine Medical Oncology; Visit Provider Physician Assistant
DX: M54.16 Radiculopathy, lumbar region (principal)
CPT/HCPCS: 72148

== ENCOUNTER 2024-02-18 10:53 | Outpatient (REF) | payer OTHER, SELFPAY ==
--- NOTE | ~2024-02-18 | XR_ITS ---
EXAMINATION: XR HIP, LEFT CLINICAL INFORMATION: Pain. COMPARISON: Radiographs dated 01/26/2020. TECHNIQUE: AP and frog-leg lateral views of the left hip. FINDINGS: No fracture. Alignment is anatomic. Hip joint space is maintained. The left femoral head is smooth. The left sacroiliac joint and the pubic symphysis are well-maintained. The soft tissues are unremarkable. XR/XR hip LT min 2V IMPRESSION: Normal left hip. Electronically signed by: Garrick Urias MD 03/19/2024 09:23 AM BHARATI DOMINGUEZ
== END 2024-02-18 10:54 | disposition home or self-care (01) ==
LOC: HO.XRAY 10:53
PROVIDERS: PCP Internal Medicine Medical Oncology; Visit Provider Physician Assistant
DX: M25.552 Pain in left hip (principal)
CPT/HCPCS: 73502

== ENCOUNTER 2025-02-02 12:13 | Outpatient (REF) | payer OTHER, SELFPAY ==
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
--- OUTSIDE RECORDS SUMMARY | 2025-02-02 14:57 | XMS_ITS | Clinical Summary ---
Author Organization [facility] Address [address] [facility] [address] [place] [address] Phone Care Team Providers Care Ginner Helper Name Role Phone Gio Gregg MD Primary Care Provider Immunizations Immunization Administration Dates Next Due COVID-19 (Pre-02/11) Moderna Vaccine, mRNA, PF 0 06/16/2020,05/19/2020 Social History Tobacco Use Types Packs/Day Years Used Date Smoking Tobacco: Never Assessed Education Answer Date Recorded Are you interested in more education? Not on estevan e 08/17/2022 Are you concerned about learning? Not on file 08/17/2022 No 08/17/2022 No 08/17/2022 Digital Access Answer Date Recorded No 09/15/2022 No 09/15/2022 No 09/15/2022 Reliable internet access at home? Not on file 09/15/2022 Device with a working camera? Not on file Comments Unknown Sex and Gender Information Value Date Recorded Sex Assigned at Female 05/17/2020 1:00 PM EST Legal Sex Female 12:50 PM EST Gender Identity Female 05/17/2020 1:00 PM EST Sexual Orientation Straight 05/17/2020 1: 00 PM EST Plan of Treatment Health Maintenance Due Date Last Done Comments Adult Td,Tdap Booster 1975 LIPID PANEL 1975 DEPRESSION SCREENING 1985 SMOKING Hx and SMOKELESS TOBACCO SCREENING 1986 HEPATITIS C SCREENING 07/25/1991 HIV ONE-TIME SCREENING (18-6 5 YEARS) 07/25/1991 PAP SMEAR 1994 MAMMOGRAM 2013 COLOGUARD 2018 COLONOSCOPY 2018 COLORECTAL CANCER SCREENING 2018 FIT TEST 2018 FOBT 2018 SIGMOIDOSCOPY 2018 VIRTUAL COLONOSCOPY 2018 PNEUMOCOCCAL VACCINES (50+ years) (1 of 1 - PCV) 07/25/2023 ZOSTER VACCINES (1 of 2) 07/25/2023 INFLUENZA VACCINE (#1) 2024 COVID-19 VACCINE (3 - 2024-2 6 season) 2024 06/16/2020, 05/19/2020 RSV VACCINE (1 - 1-dose 75+ series) 2048 HEPATITIS A VACCINES Aged Out No long er eligible based on patient's age to complete this topic HIB VACCINES Aged Out No longer eligi ble based on patient's age to complete this topic MENINGOCOCCAL VACCINES (ACWY) Aged Out No longer eligible based on patient's age to complete this topic MENINGOCOCCAL VACCINES (B) Aged Out N o longer eligible based on patient's age to complete this topic Medical Devices Not on file Insurance [employer] [facility] [employer]HER [address] [place] [id number] [facility] [employer]HER [address] [place] [id number] [place] [address] [address] [place] [id number] [place] [address] [address] [place] [address] [facility] TOGETHER M[employer] [facility] M[facility] Care Teams Ginner Helper Relationship Specialty Start Date End Date Gio Gregg MD [address] [place] [address] [place] [address] PCP - General Internal Medicine 05/17/20 Additional Source Comments The information contained in this document represents components of the legal health record. It is not the complete legal health record.[facility]
== END 2025-02-02 12:14 | disposition home or self-care (01) ==
LOC: HO.MAMMO 12:13
PROVIDERS: PCP Internal Medicine Medical Oncology; Visit Provider Internal Medicine Medical Oncology
DX: Z12.31 Encounter for screening mammogram for malignant neoplasm of breast (principal)
CPT/HCPCS: 77063; 77067

== ENCOUNTER → 2025-02-02 13:00 | Outpatient (BNV) | payer OTHER, SELFPAY | PROVIDERS: PCP Internal Medicine Medical Oncology; Visit Provider Radiology Body Imaging | DX: Z12.31 Encounter for screening mammogram for malignant neoplasm of breast (principal) | CPT/HCPCS: 77063; 77067 ==